=== PATIENT | male | born 1940 | race Caucasian/White ===

== ENCOUNTER 2024-05-24 14:31 | Inpatient (IN) | payer MEDICARE ==
[~2024-05-24 14:31] MED LIST: Iopamidol 300 61% 100 ML VIAL FS ONE
[2024-05-24] MEDS ORDERED: Senokot S 8.6-50 MG TAB PO PRN (15:55)
[2024-05-24 16:42] VITALS: BMI 23.3
[2024-05-24] MEDS ORDERED: Dextrose 50% Abboject 50 ML SYRINGE SLOW IVP PRN (17:16)
[2024-05-24] MEDS ORDERED: Dextrose 5% in Water 1,000 ML IV PRN (17:16)
[2024-05-24] MEDS ORDERED: Glucagon 1 MG/ML KIT IM PRN (17:16)
[2024-05-24] MEDS ORDERED: Insulin Lispro 100 UNIT/ML 10 ML VIAL SC PRN ×2 (17:25)
[2024-05-24 17:48] LABS: Anion Gap 14 mmol/L (10-20); BUN (Urea Nitrogen) 19 mg/dL (8.4-25.7); Calc. Creatinine Clearance 50 mL/min (70-130); Calcium 9.5 mg/dL (7.8-10.44); Carbon Dioxide 25 mmol/L (23-31); Chloride 101 mmol/L (98-107); Estimated GFR 55; Glucose 243 mg/dL (83-110); Potassium 3.9 mmol/L (3.5-5.1); Sodium 136 mmol/L (136-145)
[2024-05-24] MEDS: Cefepime 2 GM in Sodium Chloride 0.9% 100 ML IVPB SCH (17:49)
[2024-05-24] MEDS: Acetaminophen 500 MG TAB PO SCH (20:46)
[2024-05-24] MEDS: Atorvastatin Calcium 40 MG TAB PO SCH (20:47)
[2024-05-24] MEDS: Dexamethasone 0.1% OPTH SOLN L EAR SCH (20:47)
[2024-05-24] MEDS: metFORMIN 500 MG TAB PO SCH (20:47)
[2024-05-24] MEDS: Ciprofloxacin 0.3% Ophth Soln 2.5 ml Bottle L EAR SCH (20:48)
[2024-05-24] MEDS: Timolol 0.5% Ophth Soln 5 ml Bottle EA EYE SCH (20:48)
[2024-05-25] MEDS: traMADol HCl 50 MG TAB PO SCH (00:41)
[2024-05-25 04:44] LABS: Anion Gap 12 mmol/L (10-20); BUN (Urea Nitrogen) 16 mg/dL (8.4-25.7); Calc. Creatinine Clearance 52 mL/min (70-130); Calcium 9.5 mg/dL (7.8-10.44); Carbon Dioxide 25 mmol/L (23-31); Chloride 105 mmol/L (98-107); Estimated GFR 58; Glucose 198 mg/dL (83-110); Potassium 4.2 mmol/L (3.5-5.1); Sodium 138 mmol/L (136-145)
[2024-05-25 04:57] LABS: #Basophils 0.04 10x3/uL (0.0-0.2); #Eosinphils 0.17 10x3/uL (0.0-0.5); #Monocytes 0.84 10x3/uL (0.0-1.1); #Neutrophils 6.83 10x3/uL (1.5-8.4); %Basophils 0.4 % (0.0-2.0); %Eosinophils 1.8 % (0.0-6.0); %Lymphocytes 15.5 % (18.0-47.0); %Neutrophils 72.8 % (40.0-75.0); Hematocrit 37.9 % (38.8-50.0); Hemoglobin 12.9 g/dL (13.5-17.5); Mean Corpuscular Hemoglobin 29.4 pg (27.0-33.0); Mean Corpuscular Volume 86.3 fL (81.2-95.1); Mean Platelet Volume 10.2 fL (7.4-10.4); Platelet Count 181 10x3/uL (150-450); RBC Distribution Width 12.9 % (11.5-14.5); Red Blood Cell (RBC) Count 4.39 10x6/uL (4.32-5.72); White Blood Cell (WBC) Count 9.4 10x3/uL (3.5-10.5)
[2024-05-25] MEDS ORDERED: Amlodipine 5 MG TAB PO SCH (09:00)
[2024-05-25] MEDS: Enoxaparin 40 MG (0.4 mL) SYRINGE SC SCH (09:11)
[2024-05-25] MEDS: Tamsulosin HCl 0.4 MG CAP PO SCH (09:11)
[2024-05-25] MEDS: glipiZIDE XL 10 mg ER.TAB PO SCH (09:13)
[2024-05-25] MEDS: Isosorbide Mononitrate 30 MG ER.TAB PO SCH (09:14)
[2024-05-25] MEDS: Amlodipine 10 MG TAB PO SCH (09:14)
[2024-05-25] MEDS: Alogliptin 25 MG TAB PO SCH (09:14)
[2024-05-25] MEDS: Lisinopril 20 MG TAB PO SCH (09:15)
[2024-05-25] MEDS: Naproxen 500 MG TAB PO PRN (11:17)
[2024-05-25 12:43] LABS: Hemoglobin A1c 8.3 % (4.0-6.0)
[2024-05-25] MEDS: metFORMIN 500 MG TAB PO SCH (17:42)
[2024-05-26 04:03] LABS: #Basophils 0.05 10x3/uL (0.0-0.2); #Eosinphils 0.26 10x3/uL (0.0-0.5); #Monocytes 0.73 10x3/uL (0.0-1.1); #Neutrophils 4.96 10x3/uL (1.5-8.4); %Basophils 0.6 % (0.0-2.0); %Eosinophils 3.1 % (0.0-6.0); %Lymphocytes 28.8 % (18.0-47.0); %Monocytes 8.6 % (0.0-10.0); %Neutrophils 58.5 % (40.0-75.0); Hematocrit 36.2 % (38.8-50.0); Hemoglobin 11.9 g/dL (13.5-17.5); Mean Corpuscular HGB CONC 32.9 g/dL (32.0-36.0); Mean Corpuscular Hemoglobin 28.9 pg (27.0-33.0); Mean Corpuscular Volume 87.9 fL (81.2-95.1); Mean Platelet Volume 10.1 fL (7.4-10.4); Platelet Count 173 10x3/uL (150-450); RBC Distribution Width 13.1 % (11.5-14.5); Red Blood Cell (RBC) Count 4.12 10x6/uL (4.32-5.72); White Blood Cell (WBC) Count 8.5 10x3/uL (3.5-10.5)
[2024-05-26 04:10] LABS: Anion Gap 11 mmol/L (10-20); BUN (Urea Nitrogen) 27 mg/dL (8.4-25.7); Calc. Creatinine Clearance 41 mL/min (70-130); Calcium 9.4 mg/dL (7.8-10.44); Carbon Dioxide 24 mmol/L (23-31); Chloride 106 mmol/L (98-107); Estimated GFR 44; Glucose 78 mg/dL (83-110); Potassium 4.1 mmol/L (3.5-5.1); Sodium 137 mmol/L (136-145)
[2024-05-26] MEDS ORDERED: Lidocaine 1% PF 5 ML VIAL ONE (11:25)
[2024-05-26 19:17] VITALS: BP 144/63; TEMP 98.2
== END 2024-05-26 18:00 | disposition home health service (06) | DRG 156 ==
LOC: CSHTELE 15:24
PROVIDERS: ADMIT Hospitalist; ATTEND Internal Medicine
PROC: 02HV33Z Insertion of Infusion Device into Superior Vena Cava, Percutaneous Approach (ICD-10-PCS; principal; 2024-05-26)
PROC: B5181ZA Fluoroscopy of Superior Vena Cava using Low Osmolar Contrast, Guidance (ICD-10-PCS; 2024-05-26)
PROC: B548ZZA Ultrasonography of Superior Vena Cava, Guidance (ICD-10-PCS; 2024-05-26)
DX: H60.22 Malignant otitis externa, left ear (principal); E11.9 Type 2 diabetes mellitus without complications; I10 Essential (primary) hypertension; I25.10 Atherosclerotic heart disease of native coronary artery without angina pectoris; Z87.891 Personal history of nicotine dependence; Z79.899 Other long term (current) drug therapy; Z66 Do not resuscitate
CPT/HCPCS: 36415; 36416; 36569; 70470; 76937; 77001; 80048; 83036; 85025; 86140; C1751; J0692; J1650; J3490; Q9967